=== PATIENT | male | born 1990 | race Caucasian/White ===

== ENCOUNTER → 2024-10-05 | Outpatient (CLI) | payer OTHER ==
--- NOTE | 2024-10-05 09:43 | US ---
EXAMINATION TYPE: US gallbladder DATE OF EXAM: 10/05/2024 COMPARISON: NONE CLINICAL INDICATION: Male, 34 years old with history of R10.11 RIGHT UPPER QUADRANT PAIN; Heartburn a fter eating TECHNIQUE: Grayscale and color Doppler imaging of the right upper quadrant was performed. FINDINGS: EXAM MEASUREMENTS: Liver Length: 19.2 cm Gallbladder Wall: 0.3 cm CBD: 0.5 cm Right Kidney: 9.2x4.9x4.7 cm LOCAL SUPERINTENDENT NOTES: Pancreas: Tail obscured by overlying bowel gas Liver: large size, increased echogenicity and attenuation. focal fatty sparring adjacent to GB Gallbladder: wnl Evidence for sonographic Darden's sign: No CBD: wnl Right Kidney: wnl exam limited by bowel gas body habitus. Hepatomegaly with heterogeneous hyperechoic appearance of the liver. This limits evaluation for focal masses. No ascites. IMPRESSION: No gallstones or ultrasound evidence for acute cholecystitis. Hepatomegaly with fatty inf iltrative hepatocellular disease is noted [facility], , 10/05/2024 9:41 AM
== END | disposition home or self-care (01) ==
LOC: RADUSWWP 07:55
PROVIDERS: ATTEND Family Medicine
DX: K76.0 Fatty (change of) liver, not elsewhere classified (principal); R16.0 Hepatomegaly, not elsewhere classified; K76.89 Other specified diseases of liver
CPT/HCPCS: 76705